=== PATIENT | female | born 1955 | race Caucasian/White ===

== ENCOUNTER 2017-03-21 18:40 | Emergency (ER) | payer MEDICARE, OTHER ==
[2017-03-21] MEDS: LIDOCAINE 1% (MDV) 20 ML INJ SC (19:50)
[2017-03-21] MEDS: DIPHTH/TET/ACEL PERTUSS (ADULT) 0.5 ML VIAL IM* (20:14)
== END 2017-03-21 23:13 | disposition home or self-care (01) ==
LOC: FTE 18:40 → E/R 23:13
DX: S01.91XA Laceration without foreign body of unspecified part of head, initial encounter (principal); I10 Essential (primary) hypertension; E11.9 Type 2 diabetes mellitus without complications; R51 Headache; W18.39XA Other fall on same level, initial encounter; Y92.9 Unspecified place or not applicable
CPT/HCPCS: 70450; 90715; 99284-25

== ENCOUNTER → 2017-05-10 | Outpatient (CLI) | payer MEDICARE, OTHER | END | disposition home or self-care (01) | LOC: EKG 10:51 | DX: R01.1 Cardiac murmur, unspecified (principal) | CPT/HCPCS: 93306 ==